=== PATIENT | male | born 1950 | race Two or more races ===

== ENCOUNTER 2023-11-23 16:26 | Emergency (ER) | payer OTHER ==
[~2023-11-23] VITALS: Ht 170.2 cm; Wt 112.4 kg
[2023-11-23 18:20] VITALS: BP 128/71; PULSE 91; RESP 18; TEMP 97.5; O2SAT 95
== END 2023-11-23 18:45 | disposition home or self-care (01) ==
LOC: ER 16:26
DX: S80.02XA Contusion of left knee, initial encounter (principal); S80.222A Blister (nonthermal), left knee, initial encounter; M25.562 Pain in left knee; I10 Essential (primary) hypertension; V49.9XXA Car occupant (driver) (passenger) injured in unspecified traffic accident, initial encounter; Y93.89 Activity, other specified; Y92.89 Other specified places as the place of occurrence of the external cause; Y99.8 Other external cause status